=== PATIENT | male | born 1965 | race African-American/Black ===

== ENCOUNTER 2020-04-12 10:15 | Day surgery (SDC) | payer OTHER | END 2020-04-12 14:40 | disposition home or self-care (01) | LOC: AMB-ENDOS 10:15 | PROVIDERS: ATTEND Surgery | DX: D12.7 Benign neoplasm of rectosigmoid junction (principal); D12.4 Benign neoplasm of descending colon; Z20.828 Contact with and (suspected) exposure to other viral communicable diseases; K64.8 Other hemorrhoids ==

== ENCOUNTER 2021-05-23 08:31 | Day surgery (SDC) | payer OTHER | END 2021-05-23 14:15 | disposition home or self-care (01) | LOC: AMB-ENDOS 08:31 | PROVIDERS: ATTEND Surgery | DX: D12.5 Benign neoplasm of sigmoid colon (principal); Z20.822 Contact with and (suspected) exposure to COVID-19 ==